=== PATIENT | male | born 1985 | race Native Hawaiian/Other Pacific Islander ===

== ENCOUNTER 2022-05-25 18:54 | Emergency (ER) | payer OTHER ==
[~2022-05-25] VITALS: Ht 188 cm; Wt 137.0 kg
[~2022-05-25 18:54] MED LIST: ADIPEX PO; HYDR25TA60 PO; MOBIC7.5 M1 PO
[2022-05-25 19:10] VITALS: BP 143/80; TEMP 98.8
== END 2022-05-25 20:50 | disposition home or self-care (01) ==
LOC: ED 18:54
DX: H65.192 Other acute nonsuppurative otitis media, left ear (principal)
CPT/HCPCS: 96372; 99282; J1885; J2405